=== PATIENT | male | born 1955 | race Caucasian/White ===

== ENCOUNTER 2016-12-12 19:06 | Emergency (ER) | payer OTHER ==
[~2016-12-12] VITALS: Ht 170.2 cm; Wt 94.8 kg
--- NOTE | 2016-12-12 19:35 | ED GENERAL ADULT ---
History of Present Illness General Chief Complaint: General Adult Stated Complaint: PT COUGHING AND PROBLEM BREATHING Source: patient, old records Exam Limitations: no limitations Vital Signs & Intake/Output Vital Signs & Intake/Output Vital Signs Date Time Temp Pulse Resp B/P Pulse O2 O2 Flow FiO2 Ox Delivery Rate 12/12 2099 98.0 83 18 154/92 95 Room Air 12/12 2034 Room Air 12/12 2002 99 12/13 1911 97.6 86 18 174/96 96 Room Air Allergies Coded Allergies: No Known Allergies (12/12/16) Reconcile Medications Albuterol Sulfate (Ventolin Hfa) 90 MCG HFA.AER.AD 2 PUF INH Q4-6 PRN PRN WHEEZING/SHORTNESS OF BREATH Amlodipine Besylate 2.5 MG TABLET 1 TAB PO DAILY BP (Reported) Amoxicillin/Clavulanate Potass (Amox-Clav 875-125 MG Tablet) 875 MG-125 MG TABLET 1 TAB PO BID ANTIBIOTIC (Reported) Aspirin (Ecotrin*) 81 MG TABLET.DR 1 TAB PO DAILY HEART/BLOOD (Reported) Benzonatate 200 MG CAPSULE 1 CAP PO TID PRN cough Esomeprazole Magnesium (Nexium 24HR) 22.3 MG CAPSULE.DR 1 CAP PO DAILY GI ( Reported) Flecainide Acetate 150 MG TABLET 0.5 TAB PO BID A-FIB (Reported) Guaifenesin (Mucinex) 1,200 MG TAB.ER.12H 1 TAB PO BID MUCUS/COUGH (Reported) Guaifenesin/Dextromethorphan (Guaifenesin-Dm Solution) 100 MG-10 MG/5 ML LIQUID 30 ML PO Q4H COUGH/MUCUS (Reported) Losartan Potassium 100 MG TABLET 1 TAB PO DAILY BP (Reported) Metoprolol Succinate 25 MG TAB 1 TAB PO DAILY HEART/BP (Reported) Prednisone 10 MG TABLET 0 PO DAILY bronchitis 60mg on day 1, decrease by 10 mg a day for 6 days Rosuvastatin Calcium (Crestor) 10 MG TABLET 1 TAB PO DAILY CHOLESTEROL ( Reported) Triage Note: PT TO [facility] WITH C/O DRY COUGH, SOB, MIDSTERNAL CHEST PAIN 7/10 x3DAYS. PT CURRENTLY ON AUGMENTIN, ROBITUSSIN, AND MUSINEX WITH NO SIMPTOMS RELIEF. HX OF AFIB,NTN, HIGH CHOL. BP 174/96 MANUALLY. Triage Nurses Notes Reviewed? yes HPI: Patient is a 61 year old male presents complaining of cough x 3 days, dyspnea, wheezing. Chest pain associated with cough. Seen by his primary care doctor and placed on Augmentin. Has been taking mucinex with no improvement. Associated chills, denies fevers. Today increase in dyspnea which prompted patient to present to the ED for further evaluation. Chest pain is a dull pain, currently mild to moderate. (CLYDE DIXON) Past History Travel History Traveled to [place] past 21 day No Medical History Any Pertinent Medical History? see below for history Cardiovascular: AFIB, hypertension, hyperlipidemia Respiratory: bronchitis Surgical History Surgical History: non-contributory Psychosocial History Who do you live with Patient/Self What is your primary language Iraqi Tobacco Use: Quit >30 days ago Family History Hx Contributory? No (CLYDE DIXON) Review of Systems Review of Systems Constitutional: Reports: chills. Denies: fever. EENTM: Reports: no symptoms. Respiratory: Reports: see HPI. Cardiovascular: Reports: chest pain. Denies: edema, peripheral edema. GI: Denies: abdominal pain, nausea, vomiting. Genitourinary: Reports: no symptoms. Musculoskeletal: Reports: no symptoms. Skin: Reports: no symptoms. Neurological/Psychological: Reports: no symptoms. Hematologic/Endocrine: Reports: no symptoms. Immunologic/Allergic: Reports: no symptoms. (CLYDE DIXON) Physical Exam Physical Exam General Appearance: well developed/nourished, alert, awake Head: atraumatic, normal appearance Eyes: Bilateral: normal appearance, PERRL, EOMI. Ears, Nose, Throat: normal pharynx, normal ENT inspection, hearing grossly normal Neck: normal inspection, supple, full range of motion Respiratory: mild midsternal tenderness that reproduces pain. Mild diminished lung sounds. No significant wheezing, rhonchi or rales Cardiovascular: regular rate/rhythm (no appreciable murmur) Peripheral Pulses: 2+ dorsalis pedis (R), 2+ dorsalis pedis (L) Gastrointestinal: soft, non-tender Back: normal inspection, normal range of motion Extremities: normal inspection, normal capillary refill, normal range of motion, no edema Neurologic/Psych: no motor/sensory deficits, awake, alert, oriented x 3, normal gait, normal mood/affect Skin: intact, normal color, warm/dry Lymphatic: no anterior cervical ines Core Measures ACS in differential dx? Yes ASA ordered for poss ACS? No-ACS ruled out CVA/TIA Diagnosis: No Severe Sepsis Present: No Septic Shock Present: No (CLYDE DIXON) Progress Differential Diagnoses I considered the following diagnoses in my evaluation of the patient: Bronchitis , pneumonia, musculoskeletal pain, acute coronary syndrome, pneumothorax, pulmonary embolism Plan of Care: Orders Procedure Date/time Status TROPONIN LEVEL 12/12 1946 Complete COMPREHENSIVE METABOLIC PANEL 12/12 1946 Complete CBC WITHOUT DIFFERENTIAL 12/12 1946 Complete EKG 12/12 1921 Active Laboratory Tests 12/12/16 2008: Anion Gap 13, Estimated GFR > 60, BUN/Creatinine Ratio 12.0, Glucose 99, Calcium 10.3 H, Total Bilirubin 0.7, AST 70 H, ALT 117 H, Alkaline Phosphatase 58, Troponin I < 0.01, Total Protein 7.4, Albumin 4.6, Globulin 2.8, Albumin/ Globulin Ratio 1.6, CBC w Diff NO MAN DIFF REQ, RBC 5.24, MCV 91.8, MCH 30.8, RDW 12.9, MPV 8.9, Gran % 56.3, Lymphocytes % 32.2, Monocytes % 9.5 H, Eosinophils % 1.6, Basophils % 0.4, Absolute Granulocytes 6.4, Absolute Lymphocytes 3.7 H, Absolute Monocytes 1.1 H, Absolute Eosinophils 0.2, Absolute Basophils 0, PUBS MCHC 33.5 Patient reports improvement after nebulizer treatment. Results of labs and x-ray discussed with patient. Chest pain greater than 12 hours with no ischemic EKG changes and negative troponin. Symptoms appear respiratory in nature. Appears stable for discharge. (CLYDE DIXON) Diagnostic Imaging: Viewed by Me: Radiology Read. Discussed w/RAD: Radiology Read. CXR Impression: PATIENT: CARO PERALES PRESENT AGE: 61 PATIENT ACCOUNT NO: [id number] : 59 LOCATION: [facility] ORDERING PHYSICIAN: CLYDE AGUILAR SERVICE DATE: 12/12/16-1946 EXAM TYPE: RAD - XRY-CHEST XRAY, PA AND LATERAL EXAMINATION: XR CHEST CLINICAL INFORMATION: Cough , dyspnea. Evaluate for pneumonia. COMPARISON: Chest x-ray 12/08/2014. TECHNIQUE : PA and lateral views of the chest were obtained. FINDINGS: The lungs are well- expanded and clear without focal airspace consolidation. No pleural effusions or pneumothoraces are identified. Cardiomediastinal contours are within normal limits. Soft tissues are unremarkable. No acute osseous abnormality is identified. IMPRESSION: No acute pulmonary process. DICTATED BY: KATHIE DAILY MD DATE/TIME DICTATED:12/12/162034 PLASTIC BATTERY ASSEMBLER:PRATIBHA DATE/TIME TRANSCRIBED:12/12/162034 CONFIDENTIAL, DO NOT COPY WITHOUT APPROPRIATE AUTHORIZATION. <Electronically signed in Other Vendor System> SIGNED BY: KATHIE DAILY MD 12/12/162037 Initial ED EKG: normal sinus rhythm at 83 bpm normal axis, borderline prolonged QT. nonspecific ST/T-wave changes similar to previous EKG Prior EKG: unchanged (CLYDE DIXON) Departure Departure Time of Disposition: 2050 Disposition: HOME OR SELF CARE Condition: Stable Clinical Impression Primary Impression: Bronchitis Referrals: VIVIAN BYNUM MD (PCP/Family) Additional Instructions: Drink plenty fluids and rest. Follow-up with your primary doctor this upcoming week for recheck and further evaluation. Return to the emergency department if breathing worsening, chest pain worsening, unable to say hydrated, or worsening of symptoms. Departure Forms: Customer Survey General Discharge Information Prescriptions: Current Visit Scripts Albuterol Sulfate (Ventolin Hfa) 2 PUF INH Q4-6 PRN PRN WHEEZING/SHORTNESS OF BREATH #1 INHAL Prednisone 0 PO DAILY #21 TAB 60mg on day 1, decrease by 10 mg a day for 6 days Benzonatate 1 CAP PO TID PRN cough #21 CAP (CLYDE DIXON) PA/RESTAURANT GREETER Co-Sign Statement Statement: ED Attending supervision documentation- [] I saw and evaluated the patient. I have also reviewed all the pertinent lab results and diagnostic results. I agree with the findings and the plan of care as documented in the PA's/RESTAURANT GREETER's documentation. x I have reviewed the ED Record and agree with the PA's/RESTAURANT GREETER's documentation. [] Additions or exceptions (if any) to the PAs/RESTAURANT GREETER's note and plan are summarized below: [] (ANY JEFFERSON MD) Critical Care Note Critical Care Note Critical Care Time: non-applicable (CLYDE DIXON)
[2016-12-12] MEDS ORDERED: METOPROLOL SUCC25 M1 PO (19:55)
[2016-12-12] MEDS ORDERED: ASPIRIN EC81 M1 PO (19:56)
[2016-12-12] MEDS ORDERED: AMLODIPINE BES2.5 M1 PO (19:56)
[2016-12-12] MEDS ORDERED: CRESTOR10 M1 PO (19:56)
[2016-12-12] MEDS ORDERED: LOSARTAN POTAS100 M1 PO (19:56)
[2016-12-12] MEDS ORDERED: FLECAINIDE ACE150 M1 PO (19:56)
[2016-12-12] MEDS ORDERED: AMOX-CLAV 875-1 EACH PO (19:57)
[2016-12-12] MEDS ORDERED: GUAIFENESIN-DM S5 ML PO (19:57)
[2016-12-12] MEDS ORDERED: NEXIUM 24HR22.3 MG PO (19:58)
[2016-12-12] MEDS ORDERED: MUCINEX1200 M1 PO (19:58)
[2016-12-12 20:14] LABS: ABSOLUTE BASOPHIL COUNT 0 /CUMM (0.0-0.2); ABSOLUTE EOSINOPHIL COUNT 0.2 /CUMM (0.0-0.7); ABSOLUTE GRANULOCYTE CT 6.4 /CUMM (1.4-6.5); ABSOLUTE LYMPH COUNT 3.7 /CUMM (1.2-3.4); ABSOLUTE MONOCYTE COUNT 1.1 /CUMM (0.10-0.60); BASOPHIL % 0.4 % (0.0-2.0); EOSINOPHIL % 1.6 % (0-5); GRANULOCYTE % 56.3 % (42.2-75.2); HEMATOCRIT 48.1 % (42-52); MEAN CORPUSCULAR HGB 30.8 PG (27.0-31.0); MEAN CORPUSCULAR HGB CONC 33.5 G/DL (33.0-37.0); MEAN CORPUSCULAR VOLUME 91.8 FL (80.0-94.0); MEAN PLATELET VOLUME 8.9 FL (7.4-10.4); PLATELET COUNT 209 /CUMM (130-400); RBC DISTRIBUTION WIDTH 12.9 % (11.5-14.5); RED BLOOD CELL CT 5.24 /CUMM (4.70-6.10); WHITE BLOOD CELL COUNT 11.4 /CUMM (4.8-10.8)
--- NOTE | 2016-12-12 20:38 | RADIOLOGY REPORT ---
EXAMINATION: XR CHEST CLINICAL INFORMATION: Cough, dyspnea. Evaluate for pneumonia. COMPARISON: Chest x-ray 12/08/2014. TECHNIQUE: PA and lateral views of the chest were obtained. FINDINGS: The lungs are well-expanded and clear without focal airspace consolidation. No pleural effusions or pneumothoraces are identified. Cardiomediastinal contours are within normal limits. Soft tissues are unremarkable. No acute osseous abnormality is identified. IMPRESSION: No acute pulmonary process.
[2016-12-12] MEDS ORDERED: PREDNISONE10 M2 PO (20:54)
[2016-12-12] MEDS ORDERED: VENTOLIN HFA18 GM INH (20:54)
[2016-12-12] MEDS ORDERED: BENZONATATE200 M1 PO (20:54)
[2016-12-12 21:00] VITALS: BP 154/92
== END 2016-12-12 21:00 ==
LOC: ERH 19:06
PROVIDERS: Physician Assistant
DX: J40 Bronchitis, not specified as acute or chronic (principal); R07.89 Other chest pain; Z87.891 Personal history of nicotine dependence
CPT/HCPCS: 1263; 93005; 93010